=== PATIENT | female | born 1930 | race Caucasian/White ===

== ENCOUNTER 2019-09-26 09:07 | Emergency (ER) | payer MEDICARE, OTHER ==
[~2019-09-26] VITALS: Ht 162.5 cm; Wt 65.9 kg
[~2019-09-26 09:07] MED LIST: BENA1TAB12 PO; BENAZEPRIL/HCTZ; BNZ10T PO
--- NOTE | 2019-09-26 09:34 | ED Neurological Problem ---
General Stated Complaint: LT SIDE WEAKNESS Source: patient Exam Limitations: no limitations History of Present Illness Date Seen by Provider: Sep 26, 2019 Time Seen by Provider: 09:15 Initial Comments The pt is a pleasant 89 y/o female who presents for evaluation of sudden onset of left lower facial tingling, drooling from the left side of mouth, and left arm tingling. She states symptoms only lasted 1-3 minutes. She feels like she is completely back to baseline at this time. This episode was approximately hour prior to arrival. The patient reports a recent eye surgery in the [facility] for a cataract. She has no complaints at this time. She denies any previous similar symptoms in the past. She has no history of TIA or CVA. She is alert and oriented 4, calm, and appears to be in no distress this time. She denies any numbness or tingling or weakness at this time. Timing/Duration: other (1 hour ago, for 1-3 minutes) Allergies and Home Medications Allergies Coded Allergies: No Known Drug Allergies (Unverified , 03/23/10) Home Medications Benazepril Hcl 10 Mg Tablet, 1 EACH PO DAILY, (Reported) Patient Home Medication List Home Medication List Reviewed: Yes Review of Systems Review of Systems Constitutional: no symptoms reported Eyes: No Symptoms Reported Ears, Nose, Mouth, Throat: no symptoms reported Respiratory: no symptoms reported Cardiovascular: no symptoms reported Gastrointestinal: no symptoms reported Genitourinary: no symptoms reported Musculoskeletal: no symptoms reported Skin: no symptoms reported Psychiatric/Neurological: Numbness (left lower face/left hand), Weakness (left mouth) Endocrine: No Symptoms Reported Hematologic/Lymphatic: No Symptoms Reported Past Hhdlhsy-Pejykl-Mtosus Hx Past Med/Social Hx: Reviewed Nursing Past Med/Soc Hx Patient Social History Recent Foreign Travel: No Past Medical History Reproductive Disorders: No Physical Exam Vital Signs Vital Signs - First Documented 09/26/19 09:13 Temp 36.6 Pulse 93 Resp 18 B/P (MAP) 156/61 (92) Pulse Ox 96 Capillary Refill : Height, Weight, BMI Height: '" Weight: lbs. oz. 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, no motor/sensory deficits, alert, normal mood/affect, oriented x 3, other (NIH: 0) Crainal Nerves: normal hearing, normal speech, PERRL Motor/Sensory: no motor deficit, no sensory deficit Skin: normal color, warm/dry Stroke Onset of Symptoms Date of Onset of Symptoms: Sep 26, 2019 Time of Symptom Onset: 08:30 Onset of Symptoms: Yes Symptoms onset unknown: No NIH Stroke Scale Assessment Select: Initial Level of Consciousness: 0=Alert (0), Level of Consciousness- Questions: 0=Answers both month/age (0), LOC Commands: 0=Performs both tasks (0), Gaze: Normal (0), Visual Fabian: 0=No visual loss (0), Facial Movement (Facial Paresis): 0=Normal symmetrical mnt (0), Motor Function-Arms Right: 0=No drift (0), Motor Function-Arms Left: 0=No drift (0), Motor Function-Legs Right: 0=No drift (0), Motor Function-Legs Left: 0=No drift (0), Limb Ataxia: 0=Absent (0), Sensory: 0=Normal:no loss (0), Best Language: 0=No aphasia (0), Dysarthria: 0=Normal (0), Extinction & Inattention: 0=No abnormality (0), Total: 0 Progress/Results/Core Measures Results/Orders Lab Results Laboratory Tests Test 09/26/19 09:30 Range/Units White Blood Count 4.4 4.3-11.0 10^3/uL Red Blood Count 4.36 4.35-5.85 10^6/uL Hemoglobin 12.2 11.5-16.0 G/DL Hematocrit 38 35-52 % Mean Corpuscular Volume 87 80-99 FL Mean Corpuscular Hemoglobin 28 25-34 PG Mean Corpuscular Hemoglobin Concent 32 32-36 G/DL Red Cell Distribution Width 13.0 10.0-14.5 % Platelet Count 274 130-400 10^3/uL Mean Platelet Volume 10.9 H 7.4-10.4 FL Neutrophils (%) (Auto) 43 42-75 % Lymphocytes (%) (Auto) 32 12-44 % Monocytes (%) (Auto) 22 H 0-12 % Eosinophils (%) (Auto) 2 0-10 % Basophils (%) (Auto) 1 0-10 % Neutrophils # (Auto) 1.9 1.8-7.8 X 10^3 Lymphocytes # (Auto) 1.4 1.0-4.0 X 10^3 Monocytes # (Auto) 1.0 0.0-1.0 X 10^3 Eosinophils # (Auto) 0.1 0.0-0.3 10^3/uL Basophils # (Auto) 0.0 0.0-0.1 10^3/uL Neutrophils % (Manual) 42 % Lymphocytes % (Manual) 26 % Monocytes % (Manual) 21 % Eosinophils % (Manual) 3 % Basophils % (Manual) 1 % Myelocytes % 2 % Band Neutrophils 2 % Atypical Lymphocytes 3 % Prothrombin Time 12.6 12.2-14.7 SEC INR Comment 0.9 0.8-1.4 Activated Partial Thromboplast Time 29 24-35 SEC Sodium Level 140 135-145 MMOL/L Potassium Level 3.9 3.6-5.0 MMOL/L Chloride Level 105 98-107 MMOL/L Carbon Dioxide Level 23 21-32 MMOL/L Anion Gap 12 5-14 MMOL/L Blood Urea Nitrogen 16 7-18 MG/DL Creatinine 0.88 0.60-1.30 MG/DL Estimat Glomerular Filtration Rate > 60 BUN/Creatinine Ratio 18 Glucose Level 127 H 70-105 MG/DL Calcium Level 9.5 8.5-10.1 MG/DL Corrected Calcium 9.4 8.5-10.1 MG/DL Total Bilirubin 0.4 0.1-1.0 MG/DL Aspartate Amino Transf (AST/SGOT) 22 5-34 U/L Alanine Aminotransferase (ALT/SGPT) 18 0-55 U/L Alkaline Phosphatase 98 40-136 U/L Troponin I < 0.30 <0.30 NG/ML Total Protein 7.2 6.4-8.2 GM/DL Albumin 4.1 3.2-4.5 GM/DL My Orders Orders - THU,PATRICIO B DO Cbc With Automated Diff (09/26/19:20) Protime With Inr (09/26/19:20) Partial Thromboplastin Time (09/26/19:20) Comprehensive Metabolic Panel (09/26/19:20) Troponin I Fs (09/26/19:20) Ua Culture If Indicated (09/26/19:20) Chest 1 View Ap/Pa Only (09/26/19:20) Ekg Tracing (09/26/19:20) Nothing By Mouth (09/26/19 Lunch) Ed Iv/Invasive Line Start (09/26/19:20) Vital Signs Stroke Patient Q15M (09/26/19:20) Ct Head Wo-R/O Stroke (09/26/19:20) O2 (09/26/19:20) Monitor-Rhythm Ecg Trace Only (09/26/19:20) Dysphagia Screening Tool (09/26/19:20) Manual Differential (09/26/19:30) Vital Signs/I&O 09/26/19 09:13 Temp 36.6 Pulse 93 Resp 18 B/P (MAP) 156/61 (92) Pulse Ox 96 Progress Progress Note : Progress Note @1028 - Patient and family updated on lab and imaging results. It is possible the patient had a fast-resolving TIA. Case discussed with Dr. wright, the patient's PCP. Dr. Wright states that the patient had been getting worked up for possible temporal arteritis but the preliminary lab results do not favor this diagnosis. He is agreeable to discharging the patient home and would like her to take a baby aspirin daily. This is been discussed at length with the patient and she states that she or he has aspirin at home. We will give her a dose of aspirin prior to discharge. Workup today fails reveal any emergent pathology. T he patient is stable for discharge home at this time. Advised returning to the emergency Department immediately for new or worsening symptoms. Comment EKG@0951 - Normal sinus rhythm, rate of 81, normal axis, no acute ischemic findings noted, no STEMI, reviewed and interpreted by myself Diagnostic Imaging Comments [facility], [facility]. POS [place], [place] POS NAME: AMBER DUMONT [facility] REC#: [id number] PT STATUS: REG ER : 1930 PHYSICIAN: PATRICIO ANDINO DO ADMIT DATE: 09/26/19/ER FS Draft POSDate of Exam:09/26/19 CT HEAD WO-R/O STROKE PROCEDURE: CT head without contrast, r/o stroke. TECHNIQUE: Multiple contiguous axial images were obtained through the brain without the use of intravenous contrast. Auto Exposure Controls were utilized during the CT exam to meet ALARA standards for radiation dose reduction. INDICATION: Left facial droop and left-sided weakness. COMPARISON: No prior studies are available for comparison. FINDINGS: The ventricles and sulci are consistent with the patient's age. Mild periventricular hypodensity is noted, consistent with senescent change. No sulcal effacement or midline shift is detected. No acute intra-axial or extra-axial hemorrhage is detected. The cisterns are patent. The visualized paranasal sinuses are clear. IMPRESSION: Senescent changes. No acute intracranial process is detected. The results were discussed with Dr. Andino of the Emergency Department at 9:43 AM. Dictated on workstation # [id number] Dict: 09/26/1939 Trans: 09/26/19 0946 [id number] Interpreted by: DALY NELSON MD Electronically signed by: Departure Impression Primary Impression: TIA (transient ischemic attack) Disposition: 01 HOME, SELF-CARE Condition: Stable Departure-Patient Inst. Decision time for Depature: 10:38 Referrals: ANTELMO WRIGHT MD (PCP/Family) Primary Care Physician Patient Instructions: Transient Ischemic Attack (DC) Add. Discharge Instructions: Follow-up with Dr. Wright within the next 1 day. As discussed, take a baby aspirin daily. Return to the emergency Department immediately for weakness, numbness, new or worsening symptoms. PATRICIO ANDINO DO Sep 26, 2019 09:34 POS
[2019-09-26 09:46] LABS: BASOPHILS % (AUTO) 1 % (0-10); EOSINOPHILS % (AUTO) 2 % (0-10); HEMATOCRIT 38 % (35-52); HEMOGLOBIN 12.2 G/DL (11.5-16.0); LYMPHOCYTES % (AUTO) 32 % (12-44); MEAN CORPUSCULAR HEMOGLOBIN 28 PG (25-34); MEAN CORPUSCULAR HGB CONC 32 G/DL (32-36); MEAN CORPUSCULAR VOLUME 87 FL (80-99); MEAN PLATELET VOLUME 10.9 FL (7.4-10.4); MONOCYTES % (AUTO) 22 % (0-12); NEUTROPHILS % (AUTO) 43 % (42-75); PLATELET COUNT 274 10^3/uL (130-400); WHITE BLOOD COUNT 4.4 10^3/uL (4.3-11.0)
--- NOTE | 2019-09-26 09:46 | Diagnostic Imaging Report ---
PROCEDURE: CT head without contrast, r/o stroke. TECHNIQUE: Multiple contiguous axial images were obtained through the brain without the use of intravenous contrast. Auto Exposure Controls were utilized during the CT exam to meet ALARA standards for radiation dose reduction. INDICATION: Left facial droop and left-sided weakness. COMPARISON: No prior studies are available for comparison. FINDINGS: The ventricles and sulci are consistent with the patient's age. Mild periventricular hypodensity is noted, consistent with senescent change. No sulcal effacement or midline shift is detected. No acute intra-axial or extra-axial hemorrhage is detected. The cisterns are patent. The visualized paranasal sinuses are clear. IMPRESSION: Senescent changes. No acute intracranial process is detected. The results were discussed with Dr. Jenkins of the Emergency Department at 9:43 AM. Dictated by: Dictated on workstation # [id number]
[2019-09-26 09:47] LABS: EOSINOPHILS # (AUTO) 0.1 10^3/uL (0.0-0.3); LYMPHOCYTES # (AUTO) 1.4 X 10^3 (1.0-4.0); NEUTROPHILS # (AUTO) 1.9 X 10^3 (1.8-7.8)
--- NOTE | 2019-09-26 09:47 | Diagnostic Imaging Report ---
INDICATION: Extremity weakness. TIME OF EXAMINATION: 9:17 AM. COMPARISON: 02/22/2008. FINDINGS: The heart size is stable. The lungs are clear. No infiltrates are seen. No effusion or pneumothorax is identified. IMPRESSION: No acute cardiopulmonary process is detected. Dictated by: Dictated on workstation # [id number]
[2019-09-26 10:06] LABS: INR 0.9 (0.8-1.4); PROTHROMBIN TIME PATIENT 12.6 SEC (12.2-14.7)
[2019-09-26 10:07] LABS: ATYPICAL LYMPHOCYTES 3 %; BAND NEUTROPHILS 2 %; BASOPHILS % (MANUAL) 1 %; EOSINOPHILS % (MANUAL) 3 %; LYMPHOCYTES % (MANUAL) 26 %; MONOCYTES % (MANUAL) 21 %; MYELOCYTES % 2 %; NEUTROPHILS % (MANUAL) 42 %
[2019-09-26 10:08] LABS: ALKALINE PHOSPHATASE 98 U/L (40-136); BILIRUBIN,TOTAL 0.4 MG/DL (0.1-1.0); BUN/CREATININE RATIO 18; CALCIUM 9.5 MG/DL (8.5-10.1); CARBON DIOXIDE 23 MMOL/L (21-32); CHLORIDE 105 MMOL/L (98-107); CREATININE SERUM 0.88 MG/DL (0.60-1.30); GFR ESTIMATED > 60; GLUCOSE 127 MG/DL (70-105); POTASSIUM 3.9 MMOL/L (3.6-5.0); SODIUM 140 MMOL/L (135-145)
[2019-09-26 10:09] LABS: ALANINE AMINOTRANSFERASE 18 U/L (0-55); ALBUMIN 4.1 GM/DL (3.2-4.5); TOTAL PROTEIN 7.2 GM/DL (6.4-8.2)
[2019-09-26] MEDS ORDERED: ASPIRIN 81 MG CHEW (CHILDREN'S ASA) ONE (10:43)
[2019-09-26] MEDS ORDERED: ASPIRIN E.C. 81 MG (ECOTRIN) TAB PO ONE (10:45)
[2019-09-26 10:50] VITALS: BP 150/68
[2019-09-26] MEDS ORDERED: ASPIRIN 81 MG CHEW (CHILDREN'S ASA) PO ONE (11:00)
== END 2019-09-26 10:50 | disposition home or self-care (01) ==
LOC: EDUNIT# 09:07 → ER FS 09:08
DX: G45.9 Transient cerebral ischemic attack, unspecified (principal)
CPT/HCPCS: 36415; 70450; 71045; 80053; 84484; 85007; 85027; 85610; 85730; 93005; 93041

== ENCOUNTER → 2019-10-15 | Outpatient (CLI) | payer MEDICARE, OTHER | LOC: CARD 11:25 | PROVIDERS: ATTEND Family Medicine | DX: I08.1 Rheumatic disorders of both mitral and tricuspid valves (principal); G45.9 Transient cerebral ischemic attack, unspecified; I10 Essential (primary) hypertension | CPT/HCPCS: 93306 ==

== ENCOUNTER 2020-07-30 22:31 | Emergency (ER) | payer MEDICARE, OTHER ==
[~2020-07-30] VITALS: Ht 157.5 cm; Wt 68.5 kg
--- NOTE | 2020-07-30 23:03 | ED General ---
General Chief Complaint: Cardiac/General Problems Stated Complaint: HIGH BLOOD PRESSURE Nursing Triage Note: pt co htn for the past 2 weeks, was seen in another ed in [facility] and by primary tuesday with some changes to medication Nursing Sepsis Screen: No Definite Risk History of Present Illness Date Seen by Provider: Jul 30, 2020 Time Seen by Provider: 22:57 Initial Comments 89-year-old female presents with elevated blood pressure reading. Patient denies any symptoms. She denies chest pain headache vision changes nausea vomiting. Patient is here based on the fact that her blood pressure reading was in the 200s. Patient reports it was first noticed in the 200s on July 15 when she was have an eye surgery. Around 17 July she went to the emergency room at [facility]. She was prescribed metoprolol 25 mg twice daily. Patient followed up with Dr. Barlow 2 days ago and was still having elevated blood pressure. He told her to increase her nightly dose to 50 mg. And keep her benazepril at his current dosage. Patient presents today because of the elevated reading. Once again she denies any complaints is only here because of the number. Patient is supposed to follow-up with Dr. Barlow in one month to see how the prescription changed is working Allergies and Home Medications Allergies Coded Allergies: No Known Drug Allergies (Unverified , 03/23/10) Home Medications Benazepril Hcl 10 Mg Tablet, 1 EACH PO DAILY, (Reported) Patient Home Medication List Home Medication List Reviewed: Yes Review of Systems Review of Systems Constitutional: no symptoms reported EENTM: no symptoms reported Respiratory: No cough, No dyspnea on exertion, No short of breath Cardiovascular: No chest pain, No palpitations Gastrointestinal: no symptoms reported Genitourinary: no symptoms reported Musculoskeletal: no symptoms reported Skin: no symptoms reported Psychiatric/Neurological: No Symptoms Reported Hematologic/Lymphatic: No Symptoms Reported Immunological/Allergic: no symptoms reported Past Amtrvtv-Oecjss-Euwyoz Hx Past Med/Social Hx: Reviewed Nursing Past Med/Soc Hx Patient Social History Alcohol Use: Denies Use Recreational Drug Use: No Smoking Status: Never a Smoker 2nd Hand Smoke Exposure: No Recent Foreign Travel: No Contact w/Someone Who Travel: No Recent Infectious Disease Expo: No Recent Hopitalizations: No Physical Abuse: No Sexual Abuse: No Mistreated: No Fear: No Seasonal Allergies Seasonal Allergies: No Past Medical History Surgeries: Yes Gallbladder, Orthopedic, Tonsillectomy Respiratory: No Cardiac: Yes Hypertension Neurological: Yes (SPINAL MENIGITIS AT AGE 5) Reproductive Disorders: No Sexually Transmitted Disease: No Genitourinary: No Gastrointestinal: No Musculoskeletal: Yes Arthritis Endocrine: No HEENT: Yes Colon Did You Recieve Any Treatments: Yes Psychosocial: No Integumentary: No Blood Disorders: No Physical Exam Vital Signs Vital Signs - First Documented 07/30/20 22:42 Temp 36.6 Pulse 64 Resp 16 B/P (MAP) 246/84 (137) Pulse Ox 96 O2 Delivery Room Air Capillary Refill : Less Than 3 Seconds Height, Weight, BMI Height: '" Weight: lbs. oz. 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 Norm as Tested Skin: Normal Color, Warm/Dry Progress/Results/Core Measures Suspected Sepsis Recent Fever Within 48 Hours: No Infection Criteria Present: None New/Unexplained Altered Menta: No Sepsis Screen: No Definite Risk SIRS Temperature: Pulse: 64 Respiratory Rate: 16 Blood Pressure 246 /84 Mean: 137 Results/Orders Vital Signs/I&O 07/30/20 22:42 Temp 36.6 Pulse 64 Resp 16 B/P (MAP) 246/84 (137) Pulse Ox 96 O2 Delivery Room Air Capillary Refill : Less Than 3 Seconds Blood Pressure Mean: 137 Progress Note : Time: 23:00 Progress Note I had a long discussion regarding outpatient blood pressure management. I discussed with her that this time is actually more dangerous for me to make a medication change when she is having no symptoms and allow her medicine time to work. Patient's blood pressure medication was increased 2 days ago and has not had time to take effect. I discussed with her that lowering it too rapidly posterior risk for dizziness when she stands that causes a fall and potential fractures along with the blood pressure dropping too low too quickly causing strokelike symptoms. I recommend she continue her medication with the changes from 2 days ago. She can call Dr. Auguste in an appointment sooner than his scheduled 1 if needed or has continued concerns. Departure Impression Primary Impression: Hypertension, uncontrolled Disposition: 01 HOME, SELF-CARE Condition: Stable Departure-Patient Inst. Referrals: SELF,ANTELMO WOO (PCP/Family) Primary Care Physician Patient Instructions: Controlling Your Blood Pressure Through Lifestyle, Medicines for High Blood Pressure, Low Salt Diet, High Blood Pressure in Adults Add. Discharge Instructions: Called Dr. Barlow office if you are not seeing any change any her blood pressure medications after one week of the new doses Return to the ER if you developed symptoms with high blood pressure All discharge instructions reviewed with patient and/or family. Voiced understanding. JOHN PHAN DO Jul 30, 2020 23:03
[2020-07-30 23:07] VITALS: BP 189/65
== END 2020-07-30 23:07 | disposition home or self-care (01) ==
LOC: EDUNIT# 22:31 → ER FS 22:32
DX: I10 Essential (primary) hypertension (principal)
CPT/HCPCS: 99283

== ENCOUNTER → 2021-10-27 | Outpatient (CLI) | payer MEDICARE, OTHER | LOC: CARD 10:00 | PROVIDERS: ATTEND Emergency Medicine | DX: I08.3 Combined rheumatic disorders of mitral, aortic and tricuspid valves (principal); I11.9 Hypertensive heart disease without heart failure; Z86.73 Personal history of transient ischemic attack (TIA), and cerebral infarction without residual deficits | CPT/HCPCS: 93306 ==